=== PATIENT | male | born 1990 | race Caucasian/White ===

== ENCOUNTER 2018-12-21 16:16 | Emergency (ER) | payer BC ==
[2018-12-21 16:21] VITALS: TEMP 97.7
[2018-12-21] MEDS ORDERED: SODIUM CHLORIDE 0.9% 1,000 ML IV STA (16:25)
[2018-12-21] MEDS ORDERED: MORPHINE SULFATE 4 MG/ML SYRINGE IV STA (16:25)
[2018-12-21 17:01] LABS: Basophils # (A) 0.1 k/uL (0-0.2); Basophils % (A) 1 %; Eosinophils % (A) 0 %; HCT 42.1 % (39.0-53.0); HGB 15.1 gm/dL (13.0-17.5); Lymphocytes # (A) 0.9 k/uL (1.0-4.8); Lymphocytes % (A) 6 %; MCH 31.9 pg (25.0-35.0); MCHC 35.9 g/dL (31.0-37.0); MCV 88.8 fL (80.0-100.0); Mean Platelet Volume 6.7; Monocytes # (A) 0.5 k/uL (0-1.0); Monocytes % (A) 3 %; Neutrophils # (A) 14.8 k/uL (1.3-7.7); Neutrophils % (A) 90 %; Platelet Count 257 k/uL (150-450); RBC 4.74 m/uL (4.30-5.90); WBC 16.5 k/uL (3.8-10.6)
--- NOTE | 2018-12-21 17:03 | ED ---
General Adult HPI - General Chief complaint: Abdominal Pain Stated complaint: Abd.pain Time Seen by Provider: 12/21/18 16:22 Source: patient, RN notes reviewed, old records reviewed Mode of arrival: wheelchair Limitations: no limitations - History of Present Illness Initial comments: 28-year-old male patient with no pertinent past month history presents ED chief complaint of right upper quadrant pain which began approximately 10:00 this morning. Patient was he also has nausea and vomiting approximately 2 episodes of emesis. Patient denies any other complaints at this time. Denies any previous intra-abdominal surgeries. Systemic: Pt denies fatigue, fever/chills, rash. Pt denies weakness, night sweats, weight loss. Neuro: Pt denies headache, visual disturbances, syncope or pre-syncope. HEENT: Pt denies ocular discharge or irritation, otalgia, rhinorrhea, pharyngitis or notable lymphadenopathy. Cardiopulmonary: Pt denies chest pain, SOB, heart palpitations, dyspnea on exertion. Abdominal/GI: Pt denies abdominal pain, n/v/d. : Pt denies dysuria, burning w/ urination, frequency/urgency. Denies new onset urinary or bowel incontinence. MSK: Pt denies myalgia, loss of strength or function in extremities. Neuro: Pt denies new onset weakness, paresthesias. - Related Data Previous Rx's Medication Instructions Recorded Ondansetron Odt [Zofran ODT] 4 mg PO Q8HR PRN #10 tab 12/21/18 Allergies Allergy/AdvReac Type Severity Reaction Status Date / Time steroids Allergy Swelling Uncoded 12/21/18 16:21 Review of Systems ROS Statement: Those systems with pertinent positive or pertinent negative responses have been documented in the HPI. ROS Other: All systems not noted in ROS Statement are negative. Past Medical History Past Medical History: No Reported History History of Any Multi-Drug Resistant Organisms: None Reported Past Surgical History: No Surgical Hx Reported Past Psychological History: No Psychological Hx Reported Smoking Status: Never smoker Past Alcohol Use History: Occasional Past Drug Use History: None Reported General Exam - General Exam Comments Initial Comments: Constitutional: NAD, AOX3, Pt has pleasant affect. HEENT: NC/AT, trachea midline, neck supple, no lymphadenopathy. Posterior pharynx non erythematous, without exudates. External ears appear normal, without discharge. Mucous membranes moist. Eyes PERRLA, EOM intact. There is no scleral icterus. No pallor noted. Cardiopulmonary: RRR, no murmurs, rubs or gallops, no JVD noted. Lungs CTAB in anterior and posterior cortez. No peripheral edema. Abdominal exam: Abdomen soft and non-distended. Abdomen tender to palpation over quadrant, Perez sign positive. No other areas of abdominal tenderness, no guarding or rigidity.. Bowel sounds active in LLQ. No hepatosplenomegaly. No ecchymosis Neuro: CN II-XII grossly intact. No nuchal rigidity. No raccon eyes, no ferguson sign, no hemotympanum. No cervical spinal tenderness. MSK: No posterior calf tenderness bilaterally, homans sign negative bilaterally. Posterior tibialis and radial pulse +2 bilaterally. Sensation intact in upper and lower extremities. Full active ROM in upper and lower extremities, 5/5 stregnth. Limitations: no limitations Course Vital Signs 12/21/18 12/21/18 16:19 17:30 Temperature 97.7 F Pulse Rate 65 65 Respiratory 18 18 Rate Blood Pressure 124/77 117/75 O2 Sat by Pulse 100 99 Oximetry Medical Decision Making - Medical Decision Making 28-year-old male patient with no pertinent past month history presents ED chief complaint of right upper quadrant pain which began approximately 10:00 this morning. Patient was he also has nausea and vomiting approximately 2 episodes of emesis. Patient denies any other complaints at this time. Denies any previous intra-abdominal surgeries. Patient vital signs stable, afebrile. Physical exam displayed right upper quadrant tenderness, Perez sign was positive. Laboratory investigations revealed leukocytosis of 16.5. Otherwise n egative. No transaminitis. Ultrasound revealed no gallstones or dilated ducts, no focal liver defect. Patient experiencing biliary colic. Patient discharged with instructions for diet and outpatient surgery follow-up. Case discussed with Dr. Cullen. - Lab Data Result diagrams: 12/21/18 16:40 12/21/18 16:40 Lab Results 12/21/18 12/21/18 12/21/18 Range/Units 16:40 16:40 16:40 WBC 16.5 H (3.8-10.6) k/uL RBC 4.74 (4.30-5.90) m/uL Hgb 15.1 (13.0-17.5) gm/dL Hct 42.1 (39.0-53.0) % MCV 88.8 (80.0-100.0) fL MCH 31.9 (25.0-35.0) pg MCHC 35.9 (31.0-37.0) g/dL RDW 12.0 (11.5-15.5) % Plt Count 257 (150-450) k/uL Neutrophils % 90 % Lymphocytes % 6 % Monocytes % 3 % Eosinophils % 0 % Basophils % 1 % Neutrophils # 14.8 H (1.3-7.7) k/uL Lymphocytes # 0.9 L (1.0-4.8) k/uL Monocytes # 0.5 (0-1.0) k/uL Eosinophils # 0.0 (0-0.7) k/uL Basophils # 0.1 (0-0.2) k/uL Sodium 140 (137-145) mmol/L Potassium 3.6 (3.5-5.1) mmol/L Chloride 102 (98-107) mmol/L Carbon Dioxide 26 (22-30) mmol/L Anion Gap 12 mmol/L BUN 16 (9-20) mg/dL Creatinine 0.99 (0.66-1.25) mg/dL Est GFR (CKD-EPI)AfAm >90 (>60 ml/min/1.73 sqM) Est GFR (CKD-EPI)NonAf >90 (>60 ml/min/1.73 sqM) Glucose 105 H (74-99) mg/dL Plasma Lactic Acid Abdi 1.7 (0.7-2.0) mmol/L Calcium 10.4 H (8.4-10.2) mg/dL Total Bilirubin 0.7 (0.2-1.3) mg/dL AST 24 (17-59) U/L ALT 37 (21-72) U/L Alkaline Phosphatase 58 (38-126) U/L Total Protein 7.9 (6.3-8.2) g/dL Albumin 4.9 (3.5-5.0) g/dL Lipase 30 (23-300) U/L Disposition Clinical Impression: Biliary colic Disposition: HOME SELF-CARE Condition: Stable Instructions (If sedation given, give patient instructions): Biliary Colic (ED), Low Fat Diet (ED) Additional Instructions: Patient to adhere to previously discussed treatment plan and will take medication(s) as directed. Patient to follow up with PCP in 1-2 days. Patient to return to ED if symptoms do not improve. Follow-up with primary care provider and surgical consult tomorrow. Return immediately to ER if condition worsens in any way. Prescriptions: Ondansetron Odt [Zofran ODT] 4 mg PO Q8HR PRN #10 tab PRN Reason: Nausea Is patient prescribed a controlled substance at d/c from ED?: No Referrals: Ja Ambriz MD [Primary Care Provider] - 1-2 days Jacinta Sparks DO [Doctor of Osteopathic Medicine] - 1-2 days
[2018-12-21 17:08] LABS: ALT 37 U/L (21-72); AST 24 U/L (17-59); African American GFR (CKD) >90 (>60 ml/min/1.73 sqM); Albumin 4.9 g/dL (3.5-5.0); Alkaline Phosphatase 58 U/L (38-126); Anion Gap 12 mmol/L; Blood Urea Nitrogen 16 mg/dL (9-20); Calcium 10.4 mg/dL (8.4-10.2); Carbon Dioxide 26 mmol/L (22-30); Chloride 102 mmol/L (98-107); Glucose 105 mg/dL (74-99); Potassium 3.6 mmol/L (3.5-5.1); Sodium 140 mmol/L (137-145); Total Bilirubin 0.7 mg/dL (0.2-1.3); Total Protein 7.9 g/dL (6.3-8.2)
--- NOTE | 2018-12-21 17:15 | US ---
EXAMINATION TYPE: US gallbladder DATE OF EXAM: 12/21/2018 COMPARISON: NONE CLINICAL HISTORY: Pain. epigastric pain EXAM MEASUREMENTS: Liver Length: 12.9 cm Gallbladder Wall: 0.4 cm CBD: 0.4 cm Right Kidney: 9.3 x 4.3 x 4.7 cm Technically difficult study due to extensive midline bowel gas. Pancreas: only head portion seen, appears wnl Liver: limited views of right lobe to intercostal window, visualized portions wnl Gallbladder: wall mildly thickened, could be due to contraction as patient ate 4 hours ago. Evidence for sonographic Perez's sign: Yes CBD: wnl Right Kidney: No hydronephrosis or masses seen IMPRESSION: No gallstones or dilated ducts. No focal liver defect.
[2018-12-21] MEDS ORDERED: PANTOPRAZOLE 40 MG/10 ML VIAL IVP STA (17:20)
[2018-12-21 18:56] VITALS: BP 114/62; PULSE 99; RESP 16
== END 2018-12-21 18:56 | disposition home or self-care (01) ==
LOC: EC 16:16
DX: K80.50 Calculus of bile duct without cholangitis or cholecystitis without obstruction (principal); D72.829 Elevated white blood cell count, unspecified; Z88.8 Allergy status to other drugs, medicaments and biological substances
CPT/HCPCS: 36415; 80053; 83605; 83690; 85025; 76705; 99284; 96374; 96375; 96361 ×2; J2270; C9113

== ENCOUNTER 2019-09-04 17:41 | Observation (INO) | payer BC ==
[2019-09-04] MEDS ORDERED: SODIUM CHLORIDE 0.9% 1,000 ML IV STA (18:05)
[2019-09-04] MEDS ORDERED: ONDANSETRON 4 MG/2 ML VIAL IVP STA (18:05)
[2019-09-04] MEDS ORDERED: MAG HYDROX/AL HYDROX/SIMETH 30 ML, HYOSCYAMINE ELIXIR 10 ML, LIDOCAINE VISCOUS 2% 10 ML PO STA ×3 (18:06)
[2019-09-04 18:33] LABS: Basophils % (A) 0 %; Eosinophils # (A) 0.1 k/uL (0-0.7); Eosinophils % (A) 1 %; HCT 43.8 % (39.0-53.0); HGB 14.7 gm/dL (13.0-17.5); Lymphocytes # (A) 2.1 k/uL (1.0-4.8); Lymphocytes % (A) 15 %; MCH 30.5 pg (25.0-35.0); MCHC 33.5 g/dL (31.0-37.0); Mean Platelet Volume 7.7; Monocytes # (A) 0.5 k/uL (0-1.0); Monocytes % (A) 3 %; Neutrophils # (A) 11.6 k/uL (1.3-7.7); Neutrophils % (A) 80 %; Platelet Count 273 k/uL (150-450); RBC 4.81 m/uL (4.30-5.90); RDW 11.9 % (11.5-15.5); WBC 14.4 k/uL (3.8-10.6)
[2019-09-04 18:43] LABS: ALT 26 U/L (4-49); AST 22 U/L (17-59); African American GFR (CKD) >90 (>60 ml/min/1.73 sqM); Albumin 4.8 g/dL (3.5-5.0); Alkaline Phosphatase 65 U/L (38-126); Anion Gap 12 mmol/L; Blood Urea Nitrogen 14 mg/dL (9-20); Calcium 9.9 mg/dL (8.4-10.2); Carbon Dioxide 21 mmol/L (22-30); Chloride 105 mmol/L (98-107); Glucose 91 mg/dL (74-99); Non-African American GFR(CKD) >90 (>60 ml/min/1.73 sqM); Potassium 3.7 mmol/L (3.5-5.1); Sodium 138 mmol/L (137-145); Total Bilirubin 0.6 mg/dL (0.2-1.3); Total Protein 7.7 g/dL (6.3-8.2)
[2019-09-04] MEDS ORDERED: MORPHINE SULFATE 4 MG/ML SYRINGE IV STA ×2 (18:46→20:17)
--- NOTE | 2019-09-04 18:52 | ED ---
General Adult HPI - General Chief complaint: Abdominal Pain Stated complaint: [place] Time Seen by Provider: 09/04/19 17:49 Source: patient, RN notes reviewed, old records reviewed Mode of arrival: ambulatory - History of Present Illness Initial comments: 29-year-old male patient presents to ED with chief complaint of left upper quadrant epigastric abdominal pain. Patient was the pain started early this morning. Reports that is a sharp and burning pain. States that he has nausea without emesis. Denies any other complaints at this time. Systemic: Pt denies fatigue, fever/chills, rash. Pt denies weakness, night sweats, weight loss. Neuro: Pt denies headache, visual disturbances, syncope or pre-syncope. HEENT: Pt denies ocular discharge or irritation, otalgia, rhinorrhea, pharyngitis or notable lymphadenopathy. Cardiopulmonary: Pt denies chest pain, SOB, heart palpitations, dyspnea on exertion. Abdominal/GI: Pt denies vomiting or diarrhea : Pt denies dysuria, burning w/ urination, frequency/urgency. Denies new onset urinary or bowel incontinence. MSK: Pt denies myalgia, loss of strength or function in extremities. Neuro: Pt denies new onset weakness, paresthesias. - Related Data Previous Rx's Medication Instructions Recorded Ondansetron Odt [Zofran ODT] 4 mg PO Q8HR PRN #10 tab 12/21/18 Allergies Allergy/AdvReac Type Severity Reaction Status Date / Time steroids Allergy Swelling Uncoded 09/04/19 17:47 Review of Systems ROS Statement: Those systems with pertinent positive or pertinent negative responses have been documented in the HPI. ROS Other: All systems not noted in ROS Statement are negative. Past Medical History Past Medical History: No Reported History History of Any Multi-Drug Resistant Organisms: None Reported Past Surgical History: No Surgical Hx Reported Past Psychological History: No Psychological Hx Reported Smoking Status: Never smoker Past Alcohol Use History: Occasional Past Drug Use History: None Reported General Exam - General Exam Comments Initial Comments: Constitutional: NAD, AOX3, Pt has pleasant affect. HEENT: NC/AT, trachea midline, neck supple, no lymphadenopathy. Posterior pharynx non erythematous, without exudates. External ears appear normal, without discharge. Mucous membranes moist. Eyes PERRLA, EOM intact. There is no scleral icterus. No pallor noted. Cardiopulmonary: RRR, no murmurs, rubs or gallops, no JVD noted. Lungs CTAB in anterior and posterior cortez. No peripheral edema. Abdominal exam: Abdomen soft and non-distended. Abdomen mildly tender to palpation in epigastric, left upper quadrant region. No other areas of abdominal tenderness. Bowel sounds active in LLQ. No hepatosplenomegaly. No ecchymosis Neuro: CN II-XII grossly intact. No nuchal rigidity. No raccon eyes, no ferguson sign, no hemotympanum. No cervical spinal tenderness. MSK: No posterior calf tenderness bilaterally, homans sign negative bilaterally. Posterior tibialis and radial pulse +2 bilaterally. Sensation intact in upper and lower extremities. Full active ROM in upper and lower extremities, 5/5 stregnth. Course Vital Signs 09/04/19 17:45 Temperature 97.9 F Pulse Rate 89 Respiratory 20 Rate Blood Pressure 130/88 O2 Sat by Pulse 100 Oximetry Medical Decision Making - Medical Decision Making 29-year-old male patient presents to ED with chief complaint of left upper quadrant epigastric abdominal pain. Patient was the pain started early this morning. Reports that is a sharp and burning pain. States that he has nausea without emesis. Denies any other complaints at this time. Patient will signs are stable, afebrile. Physical exam displayed epigastric left upper quadrant tenderness. Laboratory investigations revealed leukocytosis of 14.4, 3+ ketones. CBC no acute process. Patient was initially administered GI cocktail this did not improve symptoms. Morphine and a CT and pelvis was ordered. This did display acute appendicitis. On repeat examination patient does now have some tenderness in the right lower quadrant region. Patient initiated on Zosyn will be admitted to Dr. Martínez, case discussed with Dr. Harris. - Lab Data Result diagrams: 09/04/19 18:20 09/04/19 18:20 Lab Results 09/04/19 09/04/19 09/04/19 Range/Units 18:20 18:20 18:20 WBC 14.4 H (3.8-10.6) k/uL RBC 4.81 (4.30-5.90) m/uL Hgb 14.7 (13.0-17.5) gm/dL Hct 43.8 (39.0-53.0) % MCV 91.0 (80.0-100.0) fL MCH 30.5 (25.0-35.0) pg MCHC 33.5 (31.0-37.0) g/dL RDW 11.9 (11.5-15.5) % Plt Count 273 (150-450) k/uL Neutrophils % 80 % Lymphocytes % 15 % Monocytes % 3 % Eosinophils % 1 % Basophils % 0 % Neutrophils # 11.6 H (1.3-7.7) k/uL Lymphocytes # 2.1 (1.0-4.8) k/uL Monocytes # 0.5 (0-1.0) k/uL Eosinophils # 0.1 (0-0.7) k/uL Basophils # 0.0 (0-0.2) k/uL Sodium 138 (137-145) mmol/L Potassium 3.7 (3.5-5.1) mmol/L Chloride 105 (98-107) mmol/L Carbon Dioxide 21 L (22-30) mmol/L Anion Gap 12 mmol/L BUN 14 (9-20) mg/dL Creatinine 0.89 (0.66-1.25) mg/dL Est GFR (CKD-EPI)AfAm >90 (>60 ml/min/1.73 sqM) Est GFR (CKD-EPI)NonAf >90 (>60 ml/min/1.73 sqM) Glucose 91 (74-99) mg/dL Plasma Lactic Acid Abdi 1.4 (0.7-2.0) mmol/L Calcium 9.9 (8.4-10.2) mg/dL Total Bilirubin 0.6 (0.2-1.3) mg/dL AST 22 (17-59) U/L ALT 26 (4-49) U/L Alkaline Phosphatase 65 (38-126) U/L Total Protein 7.7 (6.3-8.2) g/dL Albumin 4.8 (3.5-5.0) g/dL Lipase 46 (23-300) U/L Urine Color Urine Appearance (Clear) Urine pH (5.0-8.0) Ur Specific [place] (1.001-1.035) Urine Protein (Negative) Urine Glucose (UA) (Negative) Urine Ketones (Negative) Urine Blood (Negative) Urine Nitrite (Negative) Urine Bilirubin (Negative) Urine Urobilinogen (<2.0) mg/dL Ur Leukocyte Esterase (Negative) Urine WBC (0-5) /hpf Amorphous Sediment (None) /hpf 09/04/19 Range/Units 19:25 WBC (3.8-10.6) k/uL RBC (4.30-5.90) m/uL Hgb (13.0-17.5) gm/dL Hct (39.0-53.0) % MCV (80.0-100.0) fL MCH (25.0-35.0) pg MCHC (31.0-37.0) g/dL RDW (11.5-15.5) % Plt Count (150-450) k/uL Neutrophils % % Lymphocytes % % Monocytes % % Eosinophils % % Basophils % % Neutrophils # (1.3-7.7) k/uL Lymphocytes # (1.0-4.8) k/uL Monocytes # (0-1.0) k/uL Eosinophils # (0-0.7) k/uL Basophils # (0-0.2) k/uL Sodium (137-145) mmol/L Potassium (3.5-5.1) mmol/L Chloride (98-107) mmol/L Carbon Dioxide (22-30) mmol/L Anion Gap mmol/L BUN (9-20) mg/dL Creatinine (0.66-1.25) mg/dL Est GFR (CKD-EPI)AfAm (>60 ml/min/1.73 sqM) Est GFR (CKD-EPI)NonAf (>60 ml/min/1.73 sqM) Glucose (74-99) mg/dL Plasma Lactic Acid Abdi (0.7-2.0) mmol/L Calcium (8.4-10.2) mg/dL Total Bilirubin (0.2-1.3) mg/dL AST (17-59) U/L ALT (4-49) U/L Alkaline Phosphatase (38-126) U/L Total Protein (6.3-8.2) g/dL Albumin (3.5-5.0) g/dL Lipase (23-300) U/L Urine Color Yellow Urine Appearance Cloudy (Clear) Urine pH 8.0 (5.0-8.0) Ur Specific [place] 1.028 (1.001-1.035) Urine Protein Negative (Negative) Urine Glucose (UA) Negative (Negative) Urine Ketones 3+ H (Negative) Urine Blood Negative (Negative) Urine Nitrite Negative (Negative) Urine Bilirubin Negative (Negative) Urine Urobilinogen <2.0 (<2.0) mg/dL Ur Leukocyte Esterase Negative (Negative) Urine WBC 4 (0-5) /hpf Amorphous Sediment Moderate H (None) /hpf Disposition Clinical Impression: Acute appendicitis Disposition: ADMITTED IP TO THIS [facility] Condition: Serious Is patient prescribed a controlled substance at d/c from ED?: No Referrals: None,Stated [Primary Care Provider] - 1-2 days
--- NOTE | 2019-09-04 19:16 | XR ---
EXAMINATION TYPE: XR KUB 2 views DATE OF EXAM: 09/04/2019 6:34 PM CLINICAL HISTORY: Pain TECHNIQUE: 2 upright radiographs COMPARISON: None. FINDINGS: Scattered gas is seen in non-distended small bowel loops. Gas and fecal material is seen in non-distended colon. There is no visceromegaly or pneumoperitoneum. No calcification over the kidneys. However, 2 mm left hemipelvic rounded calcification is noted, havi ng the appearance of phlebolith. The lung bases are clear. Osseous structures are intact. IMPRESSION: No acute radiographic process.
[2019-09-04] MEDS ORDERED: NEOSTIGMINE 1 MG/ML 10 ML VIAL ONE (20:08)
[2019-09-04] MEDS ORDERED: PROPOFOL 10 MG/ML 20 ML VIAL IV ONE (20:08)
[2019-09-04] MEDS ORDERED: GLYCOPYRROLATE 0.2 MG/ML 2 ML VIAL ONE (20:08)
[2019-09-04] MEDS ORDERED: SUCCINYLCHOLINE CHLORIDE 100 MG/5 ML SYR IV ONE (20:08)
[2019-09-04] MEDS ORDERED: fentaNYL (PF) 50 MCG/ML 2 ML AMP ONE (20:08)
[2019-09-04] MEDS ORDERED: ceFAZolin 1,000 MG VIAL ONE (20:08)
[2019-09-04] MEDS ORDERED: LIDOCAINE 1% INJ 10MG/ML (20 ML MDV) ONE (20:08)
[2019-09-04] MEDS ORDERED: MIDAZOLAM 2 MG/2 ML VIAL ONE (20:08)
[2019-09-04] MEDS ORDERED: ROCURONIUM BROMIDE 10 MG/ML 5 ML VIAL IV ONE (20:08)
[2019-09-04] MEDS ORDERED: SODIUM CHLORIDE 0.9% 100 ML BAG ONE (20:08)
[2019-09-04] MEDS ORDERED: PANTOPRAZOLE 40 MG/10 ML VIAL IVP STA (20:14)
--- NOTE | 2019-09-04 20:21 | CT ---
EXAMINATION TYPE: CT abdomen pelvis w con DATE OF EXAM: 09/04/2019 COMPARISON: None HISTORY: Epigastric pain. CT DLP: 719.6 mGycm Automated exposure control for dose reduction was used. TECHNIQUE: Helical acquisition of images was performed from the lung bases through the pelvis. CONTRAST: Performed without Oral Contrast and with IV Contrast, patient injected with 100 mL of Isovu e 300. FINDINGS: LUNG BASES: No significant abnormality is appreciated. LIVER/GB: No significant abnormality is appreciated. PANCREAS: No significant abnormality is seen. SPLEEN: No significant abnormality is seen. ADRENALS: No significant abnormality is seen. KIDNEYS: No significant abnormality is seen. PERITONEAL CAVITY: No pneumoperitoneum and no peritoneal fluid. RETROPERITONEAL ADENOPATHY: None visualized REPRODUCTIVE ORGANS: No significant abnormality is seen URINARY BLADDER: No significant abnormality is seen. PELVIC ADENOPATHY: None visualized. OSSEOUS STRUCTURES: No significant abnormality is seen. BOWEL: The appendix is situated between the cecum and the psoas. The appendix is indistinct and is d istended, reaching 12 mm caliber. There is relatively mild periappendiceal reticulation of the adipos e planes, but no abscess and no abnormal gas collection. There is no bowel obstruction. OTHER: There are no acute vascular findings. IMPRESSION: ACUTE APPENDICITIS.
[2019-09-04 20:22] LABS: Amorphous Sediment,Urine Moderate /hpf; Appearance,Urine Cloudy (Clear); Bilirubin,Urine Negative (Negative); Blood,Urine Negative (Negative); Color,Urine Yellow; Glucose,Urine (UA) Negative (Negative); Ketones,Urine 3+ (Negative); Leukocyte Esterase,Urine Negative (Negative); Nitrite,Urine Negative (Negative); Protein,Urine Negative (Negative); Specific Gravity,Urine 1.028 (1.001-1.035); Urobilinogen,Urine <2.0 mg/dL (<2.0); WBC,Urine 4 /hpf (0-5)
[2019-09-04] MEDS ORDERED: PIPERACILLIN-TAZOBACTAM 3.375 GM in SODIUM CHLORIDE 0.9% 100 ML IVPB STA (20:25)
[2019-09-04] MEDS ORDERED: NALOXONE 0.4 MG/ML 1 ML VIAL IV PRN (20:34)
[2019-09-04] MEDS ORDERED: MORPHINE SULFATE 4 MG/ML SYRINGE IVP PRN (20:34)
[2019-09-04] MEDS ORDERED: SODIUM CHLORIDE 0.9% 1,000 ML BAG ONE (22:12)
--- NOTE | 2019-09-04 22:14 | P.GSHP ---
History of Present Illness H&P Date: 09/04/19 Chief Complaint: Acute appendicitis Patient presents complaining of upper abdominal pain mostly midline since around 11:00 this morning. Nausea but no vomiting. Appetite diminished. Last ate this morning. No history of similar events. White blood cell count is elevated. Abdominal x-rays nonspecific. Patient sent for CAT scan which showed acute appendicitis. No other etiology identified. - Review of Systems Comment: The patient denies any acute changes in vision or hearing, no dysphagia or odynophagia, no chest pain or shortness of breath, no dysuria or hematuria, no headache, no runny nose, no rectal bleeding or melena, no unexplained weight loss Past Medical History Past Medical History: No Reported History History of Any Multi-Drug Resistant Organisms: None Reported Past Surgical History: No Surgical Hx Reported Past Psychological History: No Psychological Hx Reported Smoking Status: Never smoker Past Alcohol Use History: Occasional Past Drug Use History: None Reported Medications and Allergies Home Medications Medication Instructions Recorded Confirmed Type Ibuprofen [Motrin Ib] 400 mg PO ONCE PRN 09/04/19 09/04/19 History Allergies Allergy/AdvReac Type Severity Reaction Status Date / Time steroids Allergy Swelling Uncoded 09/04/19 21:12 Surgical - Exam Vital Signs Temp Pulse Resp BP Pulse Ox 97.9 F 89 20 130/88 100 09/04/19 17:45 09/04/19 17:45 09/04/19 17:45 09/04/19 17:45 09/04/19 17:45 Physical exam: General: Well-developed, well-nourished HEENT: Normocephalic, sclerae nonicteric Abdomen: Mild epigastric and moderate right lower quadrant tenderness, no rebound or guarding, nondistended Extremities: No edema Neuro: Alert and oriented Results - Labs 09/04/19 18:20 09/04/19 18:20 Abnormal Lab Results - Last 24 Hours (Table) 09/04/19 09/04/19 09/04/19 Range/Units 18:20 18:20 19:25 WBC 14.4 H (3.8-10.6) k/uL Neutrophils # 11.6 H (1.3-7.7) k/uL Carbon Dioxide 21 L (22-30) mmol/L Urine Ketones 3+ H (Negative) Amorphous Sediment Moderate H (None) /hpf Diabetes panel 09/04/19 Range/Units 18:20 Sodium 138 (137-145) mmol/L Potassium 3.7 (3.5-5.1) mmol/L Chloride 105 (98-107) mmol/L Carbon Dioxide 21 L (22-30) mmol/L BUN 14 (9-20) mg/dL Creatinine 0.89 (0.66-1.25) mg/dL Glucose 91 (74-99) mg/dL Calcium 9.9 (8.4-10.2) mg/dL AST 22 (17-59) U/L ALT 26 (4-49) U/L Alkaline Phosphatase 65 (38-126) U/L Total Protein 7.7 (6.3-8.2) g/dL Albumin 4.8 (3.5-5.0) g/dL Calcium panel 09/04/19 Range/Units 18:20 Calcium 9.9 (8.4-10.2) mg/dL Albumin 4.8 (3.5-5.0) g/dL Pituitary panel 09/04/19 Range/Units 18:20 Sodium 138 (137-145) mmol/L Potassium 3.7 (3.5-5.1) mmol/L Chloride 105 (98-107) mmol/L Carbon Dioxide 21 L (22-30) mmol/L BUN 14 (9-20) mg/dL Creatinine 0.89 (0.66-1.25) mg/dL Glucose 91 (74-99) mg/dL Calcium 9.9 (8.4-10.2) mg/dL Adrenal panel 09/04/19 Range/Units 18:20 Sodium 138 (137-145) mmol/L Potassium 3.7 (3.5-5.1) mmol/L Chloride 105 (98-107) mmol/L Carbon Dioxide 21 L (22-30) mmol/L BUN 14 (9-20) mg/dL Creatinine 0.89 (0.66-1.25) mg/dL Glucose 91 (74-99) mg/dL Calcium 9.9 (8.4-10.2) mg/dL Total Bilirubin 0.6 (0.2-1.3) mg/dL AST 22 (17-59) U/L ALT 26 (4-49) U/L Alkaline Phosphatase 65 (38-126) U/L Total Protein 7.7 (6.3-8.2) g/dL Albumin 4.8 (3.5-5.0) g/dL Assessment and Plan (1) Acute appendicitis Narrative/Plan: 29-year-old male with CAT scan findings of acute appendicitis. Clinical scenario discussed in detail with the patient. We'll proceed with laparoscopic, possible open appendectomy at this time. Risks of bleeding, infection, abscess, hernia, conversion to an open procedure, findings of other etiology for pain, bladder bowel and ureteral injury, anesthesia complications discussed. He understands and wishes to proceed. Current Visit: Yes Status: Acute Code(s): K35.80 - UNSPECIFIED ACUTE APPENDICITIS SNOMED Code(s): 13427857
[2019-09-04] MEDS ORDERED: BUPIVACAIN-EPI 0.25%-1:200,000 30 ML VIAL ONE (22:37)
[2019-09-04] MEDS ORDERED: HYDROmorphone 0.5 MG/0.5 ML SYRINGE IVP PRN (22:41)
[2019-09-04] MEDS ORDERED: Acetaminophen-Codeine 300-30mg TAB PO PRN (23:04)
[2019-09-04] MEDS ORDERED: ONDANSETRON 4 MG/2 ML VIAL IVP PRN (23:04)
[2019-09-04] MEDS ORDERED: HYDROcodone/APAP 5-325MG 1 EACH TAB PO PRN (23:04)
--- NOTE | 2019-09-04 23:07 | P.OP ---
Date of Procedure: 09/04/19 Procedure(s) Performed: PREOPERATIVE DIAGNOSIS: Acute appendicitis POSTOPERATIVE DIAGNOSIS: Same PROCEDURE: Laparoscopic appendectomy SURGEON: Rene EBL: 5 mL ANESTHESIA: General COMPLICATIONS: None OPERATIVE PROCEDURE: The patient was brought and placed on the operating table in the supine position. The patient was placed under general anesthesia. The abdomen was prepped and draped in the usual sterile fashion. A small vertical infraumbilical incision was made. The fascia was retracted anteriorly with Delgado forceps. The Veress needle was advanced into the peritoneal cavity. The saline drop test was normal. Insufflation took place to 15 mmHg. A 5 mm trocar was then placed. An additional 5 mm suprapubic trocar was placed under direct visualization as well as a 12 mm left lower quadrant trocar under direct visualization. The appendix was inspected. It was acutely inflamed and present in the retrocecal location. Dissection using both blunt dissection and the LigaSure device allowed us to mobilize it fully. No evidence of perforation or gangrene was noted. It should be noted that there were no other inflammatory changes in the abdomen. The mesoappendix was dissected. The base of the appendix was divided using a linear 45 mm intestinal stapler. The mesentery itself was divided using the LigaSure device as well. The area was then irrigated. No further purulence or bleeding was seen. The appendix was brought out of the peritoneal cavity through the left lower quadrant trocar site with an Endo Catch bag. The fascia at the 12 mm site was closed using a Skinny-Yarely 0 Vicryl stitch. The skin at all 3 sites was closed using 4-0 Monocryl sutures. Skin glue was then applied. DISPOSITION: Stable to recovery room
[2019-09-04] MEDS: HEPARIN SODIUM,PORCINE 5,000 UNIT/ML 1 ML VIAL SQ SCH (23:46)
[2019-09-04] MEDS: KETOROLAC 30 MG/ML 1 ML VIAL IVP SCH (23:46)
[2019-09-04] MEDS: LACTATED RINGERS 1,000 ML IV SCH (23:53)
[2019-09-05] MEDS ORDERED: PIPERACILLIN-TAZOBACTAM 3.375 GM in SODIUM CHLORIDE 0.9% 100 ML IVPB SCH ×2
[2019-09-05] MEDS: PIPERACILLIN-TAZOBACTAM 3.375 GM in SODIUM CHLORIDE 0.9% 100 ML IVPB SCH ×3 (03:37→19:44)
[2019-09-05] MEDS: KETOROLAC 30 MG/ML 1 ML VIAL IVP SCH ×4 (05:04→23:48)
[2019-09-05] MEDS: PANTOPRAZOLE 40 MG/10 ML VIAL IV SCH (08:48)
[2019-09-05] MEDS: DOCUSATE 100 MG CAP PO SCH ×2 (08:48→19:43)
[2019-09-05] MEDS: HEPARIN SODIUM,PORCINE 5,000 UNIT/ML 1 ML VIAL SQ SCH ×3 (08:48→23:48)
--- NOTE | 2019-09-05 09:31 | P.PN ---
<Evelia Osborn - Last Filed: 09/05/19 09:28> Subjective Progress Note Date: 09/05/19 CHIEF COMPLAINT: Appendicitis HISTORY OF PRESENT ILLNESS: 29-year-old male who is status post laparoscopic appendectomy with Dr. López. Postop day #1. Patient examined this morning at the bedside. Patient reports abdominal discomfort at the surgical site but states it is tolerable. Patient reports mild nausea. Denies vomiting. Patient mildly tachycardic overnight. Afebrile. PHYSICAL EXAM: VITAL SIGNS: Reviewed. GENERAL: Well-developed in no acute distress. HEENT: No sclera icterus. Extraocular movements grossly intact. Moist buccal mucosa. Head is atraumatic, normocephalic. ABDOMEN: Soft. Nondistended. Surgical sites clean dry and intact without drainage or erythema. NEUROLOGIC: Alert and oriented. Cranial nerves II through XII grossly intact. ASSESSMENT: 1. Abdominal pain 2. Acute appendicitis PLAN: -Begin clear liquid diet. Advance as tolerated -Pain control -Anticipate discharge home this afternoon Nurse practitioner note has been reviewed by physician. Signing provider agrees with the documented findings, assessment, and plan of care. Objective - Vital Signs Vital signs: Vital Signs Temp 98.1 F 09/05/19 04:33 Pulse 93 09/05/19 04:33 Resp 18 09/05/19 04:33 BP 97/60 09/05/19 04:33 Pulse Ox 98 09/05/19 04:33 Intake & Output 09/04/19 09/05/19 09/05/19 18:59 06:59 18:59 Intake Total 500 Balance 500 Weight 72.575 kg 72.575 kg Intake: Oral 500 Other: # Voids 1 - Labs CBC & Chem 7: 09/04/19 18:20 09/04/19 18:20 Labs: Abnormal Lab Results - Last 24 Hours (Table) 09/04/19 09/04/19 09/04/19 Range/Units 18:20 18:20 19:25 WBC 14.4 H (3.8-10.6) k/uL Neutrophils # 11.6 H (1.3-7.7) k/uL Carbon Dioxide 21 L (22-30) mmol/L Urine Ketones 3+ H (Negative) Amorphous Sediment Moderate H (None) /hpf <Robert López - Last Filed: 09/05/19 13:56> Subjective As above. Patient with nausea and bloating this morning. Some pain still at this time. Mildly tachycardic. Continue IV antibiotics. Will keep overnight tonight. Objective - Vital Signs Vital signs: Vital Signs Temp 99 F 09/05/19 11:25 Pulse 98 09/05/19 11:25 Resp 16 09/05/19 11:25 BP 105/66 09/05/19 11:25 Pulse Ox 100 09/05/19 11:25 Intake & Output 09/04/19 09/05/19 09/05/19 18:59 06:59 18:59 Intake Total 500 180 Balance 500 180 Weight 72.575 kg 72.575 kg Intake: Intake, IV Titration 180 Amount Lactated Ringers 1,000 ml 80 @ 20 mls/hr IV .Q24H FRANCIS Rx#:[id number] Piperacillin-Tazobactam 3 100 .375 gm In Sodium Chloride 0.9% 100 ml @ 25 mls/hr IVPB Q8H FRANCIS Rx#: [id number] Oral 500 Other: # Voids 1 - Labs CBC & Chem 7: 09/04/19 18:20 09/04/19 18:20 Labs: Abnormal Lab Results - Last 24 Hours (Table) 09/04/19 09/04/19 09/04/19 Range/Units 18:20 18:20 19:25 WBC 14.4 H (3.8-10.6) k/uL Neutrophils # 11.6 H (1.3-7.7) k/uL Carbon Dioxide 21 L (22-30) mmol/L Urine Ketones 3+ H (Negative) Amorphous Sediment Moderate H (None) /hpf Assessment and Plan (1) Acute appendicitis Current Visit: Yes Status: Acute Code(s): K35.80 - UNSPECIFIED ACUTE APPENDICITIS SNOMED Code(s): 17240651
--- NOTE | 2019-09-05 09:31 | P.DS ---
<IrenaEvelia Kiera - Last Filed: 09/05/19 09:31> Providers Expected date of discharge: 09/05/19 Hospital Course: 29-year-old male who presented to the emergency room with a chief complaint abdominal pain. Patient was found to have acute appendicitis. He underwent laparoscopic appendectomy with Dr. López. Patient is doing well postoperatively without any immediate complications. Pain is controlled on oral medications. Vital signs are stable. He is stable for discharge home today. Please see EMR for further hospital course details. Discharge Diagnosis 1. Abdominal pain 2. Acute appendicitis Nurse practitioner note has been reviewed by physician. Signing provider agrees with the documented findings, assessment, and plan of care. Patient Condition at Discharge: Stable Plan - Discharge Summary New Discharge Prescriptions: New Hydrocodone/Acetaminophen [[place] 5-325] 1 tab PO Q6HR PRN #10 tab PRN Reason: Pain No Action Ibuprofen [Motrin Ib] 400 mg PO ONCE PRN PRN Reason: Pain Discharge Medication List Ibuprofen [Motrin Ib] 400 mg PO ONCE PRN 09/04/19 [History] Hydrocodone/Acetaminophen [[place] 5-325] 1 tab PO Q6HR PRN #10 tab 09/05/19 [Rx] Follow up Appointment(s)/Referral(s): Robert López MD [Medical Doctor] - 09/11/19 10:45 am None,Stated [Primary Care Provider] - 1-2 days Patient Instructions/Handouts: Laparoscopic Appendectomy (DC) Activity/Diet/Wound Care/Special Instructions: No driving while taking [place] No lifting over 10 pounds You may shower. No soaking or tub baths Very light activity until you are reevaluated at your follow up appointment with your surgeon <Robert López - Last Filed: 09/05/19 13:57> Providers Date of admission: 09/04/19 20:58 Attending physician: Robert López Primary care physician: Stated None - Discharge Diagnosis(es) (1) Acute appendicitis Current Visit: Yes Status: Acute Hospital Course: As above. Anticipate discharge 09/05
[2019-09-06] MEDS: PIPERACILLIN-TAZOBACTAM 3.375 GM in SODIUM CHLORIDE 0.9% 100 ML IVPB SCH ×2 (04:09→12:16)
[2019-09-06] MEDS: KETOROLAC 30 MG/ML 1 ML VIAL IVP SCH ×2 (05:08→12:17)
[2019-09-06 07:06] LABS: Basophils % (A) 0 %; Eosinophils # (A) 0.1 k/uL (0-0.7); Eosinophils % (A) 1 %; HCT 37.3 % (39.0-53.0); HGB 12.8 gm/dL (13.0-17.5); Lymphocytes # (A) 1.1 k/uL (1.0-4.8); Lymphocytes % (A) 20 %; MCH 32.3 pg (25.0-35.0); MCHC 34.2 g/dL (31.0-37.0); MCV 94.3 fL (80.0-100.0); Mean Platelet Volume 7.5; Monocytes # (A) 0.3 k/uL (0-1.0); Monocytes % (A) 6 %; Neutrophils # (A) 3.7 k/uL (1.3-7.7); Neutrophils % (A) 71 %; Platelet Count 166 k/uL (150-450); RBC 3.95 m/uL (4.30-5.90); RDW 12.4 % (11.5-15.5); WBC 5.2 k/uL (3.8-10.6)
[2019-09-06] MEDS: LACTATED RINGERS 1,000 ML IV SCH (09:27)
[2019-09-06] MEDS: DOCUSATE 100 MG CAP PO SCH (09:29)
[2019-09-06] MEDS: PANTOPRAZOLE 40 MG/10 ML VIAL IV SCH (09:29)
[2019-09-06] MEDS: HEPARIN SODIUM,PORCINE 5,000 UNIT/ML 1 ML VIAL SQ SCH ×2 (09:29→16:56)
--- NOTE | 2019-09-06 10:30 | P.PN ---
Progress Note - Text Progress Note Date: 09/06/19 Patient states he feels well. He is requesting a home. On exam is lesser stable. His evidence soft. Status post laparoscopic appendectomy. Patient be discharged home. He'll follow-up Dr. López next week.
[2019-09-06 12:10] VITALS: RESP 17; TEMP 98.4
[2019-09-16 08:55] VITALS: BP 136/84; PULSE 98
== END 2019-09-06 16:30 ==
LOC: EC 17:41 → 5NMEDONC 20:58
PROVIDERS: ADMIT Surgery; ATTEND Surgery
DX: K35.80 Unspecified acute appendicitis (principal); R00.0 Tachycardia, unspecified; Z88.8 Allergy status to other drugs, medicaments and biological substances; Z11.59 Encounter for screening for other viral diseases
CPT/HCPCS: 44970; 96361; 96374; 96375; 99285; 36415; 88304; 80053; 83605; 83690; 85025 ×2; 81001; 87635; 74018; 74177; G0378 ×3; J2543 ×3; J2250; J2270; J1644 ×3; J2710; J2405; J0690; J2001; J3010; J1885 ×3; J0330; J2704; C9113 ×3; Q9967; 96376

== ENCOUNTER 2020-11-06 10:52 | Emergency (ER) | payer BC ==
[2020-11-06 10:58] VITALS: TEMP 97.5
[2020-11-06] MEDS ORDERED: SODIUM CHLORIDE 0.9% 1,000 ML IV STA (11:10)
[2020-11-06 11:42] LABS: Basophils % (A) 1 %; Eosinophils # (A) 0.1 k/uL (0-0.7); Eosinophils % (A) 2 %; HCT 43.6 % (39.0-53.0); HGB 15.2 gm/dL (13.0-17.5); Lymphocytes # (A) 1.4 k/uL (1.0-4.8); Lymphocytes % (A) 27 %; MCH 32.4 pg (25.0-35.0); MCHC 34.9 g/dL (31.0-37.0); MCV 93.1 fL (80.0-100.0); Mean Platelet Volume 6.9; Monocytes # (A) 0.2 k/uL (0-1.0); Monocytes % (A) 4 %; Neutrophils # (A) 3.4 k/uL (1.3-7.7); Neutrophils % (A) 66 %; Platelet Count 270 k/uL (150-450); RBC 4.69 m/uL (4.30-5.90); RDW 12.5 % (11.5-15.5); WBC 5.2 k/uL (3.8-10.6)
[2020-11-06 11:49] LABS: ALT 22 U/L (4-49); AST 23 U/L (17-59); African American GFR (CKD) >90 (>60 ml/min/1.73 sqM); Alkaline Phosphatase 67 U/L (38-126); Amylase 57 U/L (30-110); Anion Gap 10 mmol/L; Blood Urea Nitrogen 14 mg/dL (9-20); Carbon Dioxide 24 mmol/L (22-30); Chloride 108 mmol/L (98-107); Glucose 97 mg/dL (74-99); Lipase 70 U/L (23-300); Magnesium 2.1 mg/dL (1.6-2.3); Non-African American GFR(CKD) >90 (>60 ml/min/1.73 sqM); Potassium 3.8 mmol/L (3.5-5.1); Sodium 142 mmol/L (137-145); Total Bilirubin 0.6 mg/dL (0.2-1.3); Total Protein 7.7 g/dL (6.3-8.2)
[2020-11-06 11:52] LABS: Appearance,Urine Clear (Clear); Bilirubin,Urine Negative (Negative); Blood,Urine Negative (Negative); Color,Urine Yellow; Glucose,Urine (UA) Negative (Negative); Ketones,Urine Negative (Negative); Leukocyte Esterase,Urine Negative (Negative); Nitrite,Urine Negative (Negative); PH, Urine 7.5 (5.0-8.0); Protein,Urine Negative (Negative); Specific Gravity,Urine 1.024 (1.001-1.035); Urobilinogen,Urine <2.0 mg/dL (<2.0)
[2020-11-06 12:09] LABS: Partial Thromboplastin Time 24.4 sec (22.0-30.0); Prothrombin Time 10.4 sec (9.0-12.0)
--- NOTE | 2020-11-06 12:31 | ED ---
Chest Pain HPI - General Chief Complaint: Chest Pain Stated Complaint: lt arm numbness, chest pain Time Seen by Provider: 11/06/20 11:00 Source: patient, RN notes reviewed Mode of arrival: ambulatory Limitations: no limitations - History of Present Illness Initial Comments: Patient is a 30-year-old male that presents to the emergency department complain ing of chest pain with radiation of the left arm. He notes that this happens frequently. 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 He notes that the pain usually comes on at sharp but then fades away. He denied any aggravating factors or alleviating factors. He noted he came to the emergency room to get evaluated. He was a well-appearing well-hydrated 30-year-old male in no apparent distress or pain while laying in bed. He notes that since arriving to the ER the pain has dissipated. He denied any shortness of breath headache nausea vomiting diarrhea constipation fever fatigue chills. - Related Data Home Medications Medication Instructions Recorded Confirmed Ibuprofen [Motrin Ib] 400 mg PO ONCE PRN 09/04/19 09/04/19 Previous Rx's Medication Instructions Recorded Hydrocodone/Acetaminophen [[place] 1 tab PO Q6HR PRN #10 tab 09/05/19 5-325] Allergies Allergy/AdvReac Type Severity Reaction Status Date / Time steroids Allergy Swelling Uncoded 11/06/20 10:55 Review of Systems ROS Statement: Those systems with pertinent positive or pertinent negative responses have been documented in the HPI. ROS Other: All systems not noted in ROS Statement are negative. EKG Findings - EKG Comments: EKG Findings:: Ventricular rate 76 bpm, MT interval 140 ms, QRS duration 98 ms, QTC 434 ms, PRT axes 70/75/75. Normal sinus rhythm with sinus arrhythmia, normal ECG. Past Medical History Past Medical History: No Reported History History of Any Multi-Drug Resistant Organisms: None Reported Past Surgical History: Appendectomy Past Psychological History: Depression Smoking Status: Never smoker Past Alcohol Use History: Occasional Past Drug Use History: Marijuana - Past Family History Father Family Medical History: No Reported History General Exam Limitations: no limitations General appearance: alert, in no apparent distress Head exam: Present: atraumatic, normocephalic, normal inspection Eye exam: Present: normal appearance, PERRL, EOMI. Absent: scleral icterus, conjunctival injection, periorbital swelling Neck exam: Present: normal inspection Respiratory exam: Present: normal lung sounds bilaterally. Absent: respiratory distress, wheezes, rales, rhonchi, stridor Cardiovascular Exam: Present: regular rate, normal rhythm, normal heart sounds. Absent: systolic murmur, diastolic murmur, rubs, gallop, clicks GI/Abdominal exam: Present: soft, normal bowel sounds. Absent: distended, tenderness, guarding, rebound, rigid Extremities exam: Present: normal inspection, full ROM, normal capillary refill. Absent: tenderness, pedal edema, joint swelling, calf tenderness Neurological exam: Present: alert, oriented X3 Psychiatric exam: Present: normal affect, normal mood Skin exam: Present: warm, dry, intact, normal color. Absent: rash Course Vital Signs 11/06/20 10:55 Temperature 97.5 F L Pulse Rate 77 Respiratory 16 Rate Blood Pressure 153/89 O2 Sat by Pulse 100 Oximetry Chest Pain MDM - MDM 30-year-old male complaining of chest pain that radiates to the left arm that comes and goes. Labs, 1 L normal saline, chest x-ray, EKG, monitoring engineer ordered. Labs unremarkable. EKG within normal limits. Chest x-ray negative for any acute cardiopulmonary process. Case discussed with Dr. Law, patient can discharge home with follow-up to primary care. Disposition Clinical Impression: Atypical chest pain, Anxiety Disposition: HOME SELF-CARE Condition: Stable Instructions (If sedation given, give patient instructions): Chest Pain (ED) Additional Instructions: Please return to the Emergency Department if symptoms worsen or any other concerns. Follow-up with primary care in the next 1-2 days. Is patient prescribed a controlled substance at d/c from ED?: No Referrals: Vaughn Roche MD [Primary Care Provider] - 1-2 days Time of Disposition: 13:01
--- NOTE | 2020-11-06 12:57 | XR ---
EXAMINATION TYPE: XR chest 2V DATE OF EXAM: 11/06/2020 COMPARISON: NONE HISTORY: Chest pain TECHNIQUE: Frontal and lateral views of the chest are obtained. FINDINGS: There is no focal air space opacity. No evidence for pneumothorax. No pleural effusion. The cardiac silhouette size is within normal limits. The osseous structures are grossly intact. IMPRESSION: 1. No acute cardiopulmonary process.
[2020-11-06 13:09] VITALS: BP 124/78; PULSE 90; RESP 18
== END 2020-11-06 13:09 | disposition home or self-care (01) ==
LOC: EC 10:52
DX: R07.89 Other chest pain (principal); F41.9 Anxiety disorder, unspecified; R20.0 Anesthesia of skin; Z88.8 Allergy status to other drugs, medicaments and biological substances
CPT/HCPCS: 36415; 71046; 80053; 81003; 82150; 83690; 83735; 84484; 85025; 85610; 85730; 93005; 96360; 96361; 99285

== ENCOUNTER 2022-03-22 13:52 | Emergency (ER) | payer BC ==
[2022-03-22 14:20] VITALS: BP 117/80; PULSE 94; RESP 16; TEMP 98
== END 2022-03-22 18:00 | disposition left against medical advice (07) ==
LOC: EC 13:52
DX: Z53.21 Procedure and treatment not carried out due to patient leaving prior to being seen by health care provider (principal)
CPT/HCPCS: 93005; 99499